=== PATIENT | female | born 1960 | race Caucasian/White ===

== ENCOUNTER 2020-02-17 13:51 | Outpatient (CLI) | payer OTHER | END 2020-02-17 23:59 | disposition home or self-care (01) | LOC: CFH 13:51 | PROVIDERS: ATTEND Family Medicine | DX: Z12.31 Encounter for screening mammogram for malignant neoplasm of breast (principal); Z12.39 Encounter for other screening for malignant neoplasm of breast; R94.4 Abnormal results of kidney function studies | CPT/HCPCS: 76641; 76770; 77063; 77067 ==